=== PATIENT | male | born 1980 | race Caucasian/White ===

== ENCOUNTER 2021-01-19 20:24 | Emergency (ER) | payer OTHER ==
[~2021-01-19] VITALS: Ht 167.6 cm; Wt 75.3 kg
[2021-01-19] MEDS ORDERED: BACTRIM DS TAB1 EACH PO (23:22)
[2021-01-19] MEDS ORDERED: DICLOFENAC SODI75 MG PO (23:22)
== END 2021-01-19 23:38 | disposition home or self-care (01) ==
LOC: ER 20:24
DX: L02.416 Cutaneous abscess of left lower limb (principal)

== ENCOUNTER 2021-06-09 21:22 | Emergency (ER) | payer OTHER ==
[~2021-06-09] VITALS: Ht 167.6 cm; Wt 72.6 kg
[~2021-06-09 21:22] MED LIST: BACTRIM DS TAB1 EACH PO; DICLOFENAC SODI75 MG PO
== END 2021-06-09 23:46 | disposition home or self-care (01) ==
LOC: ER 21:22
DX: K64.9 Unspecified hemorrhoids (principal)